=== PATIENT | male | born 1975 | race African-American/Black ===

== ENCOUNTER → 2022-02-27 09:50 | Outpatient (CLI) | payer OTHER, SELFPAY ==
--- NOTE | 2022-02-27 | DI.US.S_ITS ---
PROCEDURE: US SCROTUM INDICATIONS: Inflammatory disorders of scrotum TECHNIQUE: Real-time scanning was performed of the scrotum and testicles, with image documentation. Color and pulse Doppler interrogation was performed of both testicles. COMPARISON: None. FINDINGS: Right: Testicle is normal in size at 4.2 x 3.3 x 2.2 cm, and homogenous in echotexture. Epididymis is normal in overall size and morphology. Epididymis measures 1.2 cm in thickness. No mass in this region. No hydrocele or varicoceles. Overlying scrotal skin is normal in thickness. Left: Testicle is normal in size at 4.2 x 3.1 x 2.2 cm, and homogeneous in echotexture. Epididymis is normal in overall size and morphology. Epididymis measures 0.8 cm in thickness. No hydrocele or varicoceles. Overlying scrotal skin is normal in thickness. Doppler: Color and pulse Doppler demonstrate normal and symmetric arterial flow in both testicles. IMPRESSION: 1. No mass. No varicocele or hydrocele. 2. No significant abnormality in the region of clinical concern as palpated by the patient. The patient appears to be palpating the right epididymal tail which is slightly more prominent compared to the left. However, no hyperemia to suggest epididymitis. Dictated by: Renato Vargas M.D. on 02/27/2022 at 12:47 Approved by: Renato Vargas M.D. on 02/27/2022 at 12:52
== END ==
PROVIDERS: Referring Provider Registered Nurse; Visit Provider Registered Nurse
DX: N49.2 Inflammatory disorders of scrotum (principal)
CPT/HCPCS: 76870; 93976